=== PATIENT | female | born 1940 | race Caucasian/White ===

== ENCOUNTER 2020-02-15 19:12 | Inpatient (IN) ==
[2020-02-15 20:34] LABS: BASO# 0.04 X1000 (0.0-0.2); BASO% 0.4 % (0.0-0.8); EOS# 0.35 X1000 (0.0-0.7); EOS% 3.8 % (0.0-10.0); HEMATOCRIT 34.8 % (37.0-47.0); HEMOGLOBIN 11.1 g/dL (12.0-16.0); IMM GRAN# 0.01 X1000 (0.0-0.04); IMM GRAN% 0.1 % (0.0-0.5); LYMPH# 1.93 X1000 (1.2-3.4); LYMPH% 20.7 % (20.5-51.1); MCH 30.3 PG (27-31); MCHC 31.9 g/dL (33-37); MCV 95.1 FL (81-99); MONO# 0.82 X1000 (0.11-0.59); MONO% 8.8 % (1.7-9.3); MPV 11.2 FL (7.4-10.4); NEUT# 6.16 X1000 (1.4-6.5); NEUT% 66.2 % (42.2-75.2); PLT 268 X1000 (130-400); RBC 3.66 XMIL (4.2-5.4); RDW 14.4 % (11.5-14.5); WBC 9.31 X1000 (4.8-10.8)
--- NOTE | 2020-02-15 20:46 | Diag Imaging Result Doc PS360 ---
CT HEAD W/O CONTRAST - 02/15/2020 INDICATION: WEAKNESS COMPARISON: 10/08/2019 FINDINGS: There are some new, chronic lacunar infarcts in the right frontal lobe white matter. Otherwise stable mild scattered cerebral white matter chronic microvascular ischemia. No intracranial mass or hemorrhage. The skull is intact. The sinuses, mastoids, and middle ears are clear. IMPRESSION: Increasing chronic stroke burden. No acute process. This exam was performed using automated exposure control, adjustment of mA or kV according to patient size, and/or use of iterative reconstruction technique Electronically signed by Kam Patel 02/15/2020 8:43 PM
[2020-02-15 20:50] LABS: AGAP 10; ALKALINE PHOSPHATASE 75 U/L (32-104); BUN 18 mg/dL (8-22); CALCIUM 9.4 mg/dL (8.8-10.2); CHLORIDE 104 mmol/L (98-107); COSMO 287; CREATININE 0.6 mg/dL (0.5-0.9); ESTIMATED GFR > 60; GLUCOSE 132 mg/dL (70-104); GOT 13 U/L (10-30); GPT 9 U/L (10-36); POTASSIUM 3.7 mmol/L (3.5-5.1); SODIUM 142 mmol/L (136-145); TCO2 29 mmol/L (25-35); TOTAL PROTEIN 7.2 g/dL (6.3-8.3)
[2020-02-15 20:51] LABS: INR 0.86; PROTIME 12.1 Seconds (11.0-16.0); PTT 30.9 Seconds (22.3-41.8)
[2020-02-15 21:00] LABS: URINE SOURCE CLEAN CATCH
[2020-02-15 21:03] LABS: BILIRUBIN URINE NEGATIVE (NEGATIVE); BLOOD URINE NEGATIVE (NEGATIVE); COLOR YELLOW; GLUCOSE URINE NEGATIVE (NEGATIVE); KETONE URINE NEGATIVE (NEGATIVE); LEUKOCYTES URINE NEGATIVE (NEGATIVE); NITRITE URINE NEGATIVE (NEGATIVE); PROTEIN URINE NEGATIVE (NEGATIVE); SP GRAVITY URINE 1.013; TURBIDITY URINE CLEAR (CLEAR); UROBILINOGEN URINE NORMAL (NORMAL)
[2020-02-15 21:04] LABS: UR EPITHELIAL CELLS <10 /HPF (<10); URINE BACTERIA NEGATIVE /HPF; URINE RBC <10 /HPF (<10); URINE WBC <10 /HPF (<10)
[2020-02-15] MEDS ORDERED: ASPIRIN PO ONE (21:20)
--- NOTE | 2020-02-15 22:53 | PROVIDER DOCUMENTATION ---
This chart was entered by Clair Barnard Scribe, acting as scribe for Serene Price CRNP. HPI-General Adult - General Chief Complaint: Weakness Stated Complaint: FALL Time Seen by Provider: 02/15/20 19:17 Source: patient Allergies/Adverse Reactions: Patient Allergies Allergy/AdvReac Type Severity Reaction Status Date / Time codeine AdvReac Unknown Verified 10/05/18 23:04 Home Medications: Home Medication List Medication Instructions Recorded Confirmed Last Taken Type Metformin [Glucophage] 500 mg PO DAILY 10/05/18 10/08/19 Unknown History Omeprazole [Prilosec] 10 mg PO DAILY 10/05/18 10/08/19 Unknown History Amlodipine Besylate [Norvasc] 2.5 mg PO DAILY #30 tab 10/08/19 Unknown Rx Aspirin 81 mg PO DAILY #30 chewtab 10/08/19 Unknown Rx - History of Present Illness -Gen Adult Nature of Presenting Problems: pt is a 80 yr old female presenting with complaint of left side weakness, onset 0900 this AM, pt admits difficulty getting up, denies fall but reports she slid off the couch onto the floor and was unable to get self up. pt denies any numbness, no slurred speech/facial droop. Review of Systems - Adult - REVIEW OF SYSTEMS - ADULT Constitutional: reports: fatique. denies: chills, fever Eyes: reports: no symptoms reported Ears, Nose, Mouth & Throat: reports: no symptoms reported Cardiovascular: denies: chest pain, palpitations, syncope Respiratory: denies: cough, shortness of breath Gastrointestinal: denies: abdominal pain, diarrhea, nausea, vomiting Genitourinary: reports: no symptoms reported Musculoskeletal: reports: muscle weakness (left sided) Integumentary: reports: no symptoms reported Neurological: denies: dizziness/vertigo, numbness, paresthesia, slurred speech, syncope Psychiatric: reports: no symptoms reported Endocrine: reports: no symptoms reported Hematologic/Lymphatic: reports: no symptoms reported Allergic/Immunologic: reports: no symptoms reported All Other Systems: Reviewed and Negative Past History - Adult - PAST MEDICAL HISTORY-ADULT Review of Records: reports: Old Records Reviewed, Nursing Assessment Review, Medications Reviewed, Social history reviewed & non-contributory. Major Childhood Illnesses: reports: denies history Cardiovascular: reports: denies history Respiratory: reports: denies history Gastrointestinal: reports: denies history Obstetrical/Gynecological: reports: denies history Genitourinary: reports: denies history Musculoskeletal: reports: denies history Neurological: reports: denies history Endocrine/Immune: reports: denies history Other Conditions: reports: denies history - IMMUNIZATION STATUS Childhood Immunizations: See Nurse Assessment Flu Vaccine: See Nurse Assessment - FAMILY HISTORY Family History: reviewed, not pertinent - SOCIAL HISTORY Smoking: denies Substance Use: denies Living Situation: family Physical Exam-General - PHYSICAL EXAM-ADULT Initial Vital Signs Reviewed: Yes - CONSTITUTIONAL General Appearance: alert, no apparent distress, other (frail) - EYES Eyes: PERRL/EOMI - HEAD, EARS, NOSE, MOUTH & THROAT HENMT: normocephalic/atraumatic - NECK Neck: non-tender, full range of motion, supple, normal inspection - RESPIRATORY Respiratory: chest non-tender, lungs clear, normal breath sounds, no respiratory distress, no accessory muscle use - CARDIOVASCULAR Cardiovascular: normal peripheral pulses, regular rate, rhythm, no edema - GASTROINTESTINAL (ABDOMEN) Abdominal Exam: normal bowel sounds, non tender, soft - LYMPHATIC Lymphatic: no adenopathy - MUSCULOSKELETAL Back Exam: normal inspection Extremity: normal range of motion, non-tender, normal gait Peripheral Pulses: radial (R): 2+, radial (L): 2+, dorsalis-pedis (R): 2+, dorsalis-pedis (L): 2+ - SKIN Integumentary: normal color, normal turgor, warm/dry - NEUROLOGIC Neurologic: motor weakness (left side weakness). negative: facial droop, sensory deficit - PSYCHIATRIC Psych/Mental Status: normal mood/affect Progress - PLAN OF CARE/RESULTS Progress/Plan/Lab Results: Vital Signs - 8 hr 02/15/20 19:28 Temperature 97.8 F Pulse Rate 78 Respiratory Rate 18 Blood Pressure 162/86 O2 Sat by Pulse Oximetry 96 Orders Category Date Time Status Saline Loc NOW Care 02/15/20 19:[address] HEAD W/O CONTRAST [CT] Stat Exams 02/15/20 19:32 Ordered CBC WITH ELECTRONIC DIFF [HEME] Stat Lab 02/15/20 19:31 Uncollected COMPREHENSIVE METABOLIC PANEL [CHEM] Stat Lab 02/15/20 19:32 Uncollected PROTIME WITH INR [COAG] Stat Lab 02/15/20 19:32 Uncollected PTT [COAG] Stat Lab 02/15/20 19:32 Uncollected UA NIMS W/REFLEX CULT [URINALYSIS] Stat Lab 02/15/20 19:33 Uncollected EKG [EKG] Stat Ther 02/15/20 19:32 Ordered reviewed need for admission with patient and family, in agreement with transfer to [facility] for further care and nuero consult Result Diagrams: 02/15/20 20:15 02/15/20 20:15 - REASSESSMENT Reassessment #1 Time Reassessed: 19:40 Status: worsening (pt self ambualated into triage initially, pt now unable to lift left leg) Reassessment #2 Time Reassessed: 21:21 Status: other (left weakness has resolved on LE) - EKG 1 Time of EKG reading by physician:: 20:01 EKG Read and Signed by:: Hilario Castano EKG Interpretation (*Must complete 3 of following elements*): Normal Rate: 74 Rhythm: NSR Upperco: normal QRS: normal KS Interval: normal ST Wave: normal - CT/MRI 1 CT Study: Head Impression: See EMR Report (CT HEAD W/O CONTRAST - 02/15/2020 INDICATION: WEAKNESS COMPARISON: 10/08/2019 FINDINGS: There are some new, chronic lacunar infarcts in the right frontal lobe white matter. Otherwise stable mild scattered cerebral white matter chronic microvascular ischemia. No intracranial mass or hemorrhage. The skull is intact. The sinuses, mastoids, and middle ears are clear. IMPRESSION: Increasing chronic stroke burden. No acute process. This exam was performed using automated exposure control, adjustment of mA or kV according to patient size, and/or use of iterative reconstruction technique Electronically signed by Kam Patel 02/15/2020 8:43 PM 02/15/202042 Interpreting Physician: Kam Patel MD Dictated Date/Time: 02/15/202035 cc: Serene Price; RADHA ANGELA) - CONSULTS/PCP/HOSPITALIST Notification #1 *Consult/PCP/Hospitalist*: Dr. Pennington Time Discussed: 22:52 Consult Disposition: Admit (Dr. Castano disscussed with Dr. Rose) Departure - Departure Date of Disposition Decision: 02/15/20 Time of Disposition Decision: 21:21 DIAGNOSIS: CVA (cerebral vascular accident) Disposition: ADMITTED INPATIENT 09 Certified Medical Emergency: Emergent Condition: Stable Referrals and Follow-Ups: RADHA ANGELA [Primary Care Provider] - - Critical Care Note This patient required my direct & personal management of CC.: No Attestation - Physician/ SMITHA Attestation Patient care was provided by Advanced Practice Provider:: Yes Advanced Practice Provider:: Serene Price Advanced Practice Provider documentation review:: The Mid-level provider documentation, treatment plan and medical decision making was reviewed by the physician who agrees with all treatment and medical decision making by the MLP. The physician spent face to face time with patient:: No Advanced Practice Provider documentation review:: Supervising physician onsite and consulted in the evaluation and care of this patient. The physician did not have a face to face encounter with the patient. - NIH Stroke Scale NIH Type: Initial Evaluation Level of Consciousness: 0-Alert LOC Questions (ask month and age): 0-Answers Both Correctly LOC Commands (ask to open & close eyes;make a fist, let go): 0-Obeys Both Correctly Best Gaze (horizontal eye movement): 0-Normal Visual (use finger movement, counting or visual threat): 0-No Visual Loss (blind in R eye) Facial Palsy (show teeth or raise eyebrows & close eyes tght: 0-Symmetrical Movement Motor Function-left arm: 1-Drift Motor Function-right arm: 0-Normal Motor Function-left le-Some Effort Against Yeso Motor Function-right le-Normal Limb Ataxia(gmvwfn-tjrm-hzhdnz, or heel to ramsey): 1-Present in one limb Sensory(pin prick to face,arms,trunk,legs-compare side/side): 0-No Ataxia Best Language(name item/read sentence.Ex-Down to Earth): 0-No Aphasia Dysarthria(Pt read words or say words Ex.Mama,Tip-Top,Thanks: 0-Normal Articulation Extinction and Inattention: 0-Normal NIH Total Score: 5 Stroke tPA Guidelines - Inclusion Criteria for IV tPA 18 years old or older: Yes Ischemic stroke with measurable deficit: Yes Onset <3 hours ago *OR* 3-4.5 hours ago: No This chart was documented by the indicated scribe, (Clair Barnard, Chelsey) and accurately reflects the services I performed and decisions made by me, Lory Price CRNP, as attested by the provider's signature.
[2020-02-16] MEDS ORDERED: ZOFRAN IV PRN (01:04)
[2020-02-16] MEDS ORDERED: LOVENOX SUBQ SCH (01:15)
[2020-02-16] MEDS: NS 1,000 ML IV SCH ×2 (02:27→15:09)
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
--- NOTE | 2020-02-16 05:23 | EKG Report ---
Test Performed on : 02/15/2020 8:01:20 PM Test Reason : WEAKNESS Blood Pressure : / mmHG Vent. Rate : 074 BPM Atrial Rate : 074 BPM P-R Int : 132 ms QRS Dur : 084 ms QT Int : 384 ms P-R-T Axes : 048 003 027 degrees QTc Int : 426 ms Normal sinus rhythm. Normal ECG When compared with ECG of 08-OCT-2019 12:41, No significant change was found Unconfirmed Result
[2020-02-16] MEDS: PROTONIX PO SCH (06:30)
[2020-02-16] MEDS: HUMALOG SUBQ SCH ×4 (06:30→20:58)
--- NOTE | 2020-02-16 07:07 | Diag Imaging Result Doc PS360 ---
EXAM: CHEST-1 VIEW 02/16/2020 HISTORY: L sided wheeze TECHNIQUE: AP portable at 0254 COMMENT: There is some questionable atelectasis or pneumonia in the left lower lobe. Otherwise are has been no significant change in the appearance the chest considering differences in technique since 10/08/2019. IMPRESSION: Questionable left lower lobe atelectasis. Electronically signed by Levar Guajardo 02/16/2020 7:05 AM
[2020-02-16 08:15] LABS: RETIC% 3.12 % (0.8-2.1); RETIC-HE 35.6 PG (28.2-36.6)
[2020-02-16 08:18] LABS: HEMOGLOBIN A1C 7.2 % (4.8-6.0)
[2020-02-16 08:27] LABS: CHOLESTEROL 126 mg/dL (0-200); HDL 48 mg/dL (45-65); LDL 61 mg/dL; TRIGLYCERIDES 87 mg/dL (35-135); VLDL 17 mg/dL
[2020-02-16] MEDS ORDERED: PLAVIX PO SCH (09:00)
[2020-02-16] MEDS: ASPIRIN PO SCH (10:08)
[2020-02-16] MEDS: LIPITOR PO SCH (10:08)
--- NOTE | 2020-02-16 11:32 | Diag Imaging Result Doc PS360 ---
EXAM: MRI BRAIN W/O CONTRAST INDICATION: CVA COMPARISON: CT head dated 02/15/2020. No prior MRI brain is available for comparison. FINDINGS: There is patchy subcortical encephalomalacia related to old infarcts in the right frontal lobe. However, adjacent to these older infarcts in the right frontal lobe near the cranial vault, there are a couple of tiny foci of cortical and subcortical restricted diffusion indicating acute infarcts (see images 22 and 23 of series 7). There is minimal encephalomalacia at the medial right parietal lobe posteriorly near the cranial vault. There is suggestion of mild white matter microangiopathy. There is a tiny chronic lacunar infarct involving the jordan to the right of midline. There is no discrete intracranial mass, mass effect, or intracranial hemorrhage. The surrounding soft tissues and bony structures are essentially unremarkable. IMPRESSION: 1.Patchy subcortical encephalomalacia involving the right frontal lobe indicating old infarcts but there are a couple of tiny foci of cortical and subcortical restricted diffusion adjacent to this in the right frontal lobe indicating acute infarcts. Please see above discussion. 2.Focal right parietal lobe encephalomalacia, small chronic lacunar infarct involving the jordan, and suggestion of mild white matter microangiopathy. Electronically signed by Desmond Tellez 02/16/2020 11:30 AM
--- NOTE | 2020-02-16 12:49 | NEUROLOGY CONSULTATION ---
DATE: 02/16/2020 LOCATION: Room 326A. HISTORY OF PRESENT ILLNESS: Ms. Estevez is 80 years old and she has had some recent falls. She reports no significant memory problems, and history is taken from the patient. She reports that she fell in the bathroom and landed in the tub, and could not get herself up without assistance about 2 months ago. She believes that she tripped and fell on two other occasions, both within the last month, once getting herself up without assistance, and once having some help to get up. Yesterday, she had trouble getting up from bed. She eventually got herself to the couch, and then had trouble getting off the couch, eventually sliding onto the floor, unable to get up. She reports she felt weak all over. She presented to the hospital, where she was noted to have left-sided weakness. CT scan shows right frontal white matter lucency, and brain MRI today without contrast shows evidence of old right frontal encephalomalacia and some small areas of restricted diffusion adjacent to that. She has been afebrile. Systolic blood pressures have ranged 140s to 180s. HOME MEDICATIONS: Include aspirin, amlodipine, metformin, and she reports taking these correctly. PAST MEDICAL HISTORY: Remarkable for hypertension, dyslipidemia, diabetes mellitus type 2. PHYSICAL EXAMINATION: Ms. Estevez is awake, alert, attentive. Her speech is not dysarthric. Language function is intact on brief bedside testing. She is oriented. I did not test her cognitive function thoroughly. Head and neck are unremarkable. Visual peña are full to confrontational finger counting with the left eye. She has no vision in the right eye that I can demonstrate. Extraocular movements are full. Facial motility is good bilaterally. Tongue is midline. She reports equal pinprick appreciation across the face. Shoulder shrug is diminished on the left. Strength is normal in the right limbs. Strength is diminished on the left, grading 3/5 at the deltoid, 4/5 at the wrist extensor and sustainable agriculture specialist, 3/5 in the iliopsoas, and 4/5 in the anterior tibialis. Tone is increased in the left arm. She did rapid alternating movements better with the right hand than the left. She did better with right [id number]-[id number] than with the left. She reports symmetric pinprick and light touch appreciation over the limbs. Reflexes are trace at the ankles symmetrically, 1+ at the wrists symmetrically. Plantar response is silent bilaterally. I did not test her gait. IMPRESSION: Left hemiparesis, relatively pure motor deficit. The imaging findings suggest previous infarction, possibly correlating with when she began to fall a few months ago, and some more acute infarction, which may correlate with her sudden inability to get up yesterday. She has risk factors for cerebrovascular ischemic problems including age, previous infarction, hypertension, dyslipidemia, diabetes mellitus. 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 This would suggest nondominant right hemisphere infarction, but she reports always being left handed. I agree with workup as ordered, including CT angiogram. I would continue maintaining blood pressures in the current range, continue statin and aspirin. Thank you for asking Neurology to see Ms. Estevez. cc: MD SANJUANA Carl III
--- NOTE | 2020-02-16 13:10 | ECHO REPORT ---
ORDER DATE: 02/16/2020 MEASUREMENTS: Septal thickness 1.4, left ventricular internal diameter in diastole 3.4, posterior wall thickness 1.0, left ventricular internal diameter in systole 2.3, aortic root 2.6, left atrium 3.8. SUMMARY: 1. Technically difficult study due to limited acoustic window quality. 2. Aortic valve is trileaflet and opens normally on 2-dimensional images. The peak gradient across the aortic valve is less than 10 mmHg. Mitral and tricuspid valves are without evidence of structural abnormality, while pulmonic valve is not well demonstrated. There is very mild mitral regurgitation, mild tricuspid regurgitation, and trace pulmonic insufficiency. The estimated systolic PA pressure by Doppler is 25 to 30 mmHg. The aortic root is normal in size. 3. Normal left ventricular chamber size with mild concentric left ventricular hypertrophy suggested. The estimated left ventricular ejection fraction appears to be at least 60%. No regional wall motion abnormality can be appreciated. Doppler suggests grade 1 left ventricular diastolic dysfunction. The left atrium is upper normal in size. The right atrium and right ventricle are normal in size with normal right ventricular systolic function. 4. No pericardial effusion. 5. Appearance of the inferior vena cava suggests normal central venous pressure. CONCLUSIONS: 1. Technically difficult study. 2. Very mild mitral regurgitation. 3. Mild tricuspid regurgitation with estimated systolic PA pressure of 25 to 30 mmHg. 4. Mild left ventricular hypertrophy with estimated left ventricular ejection fraction of at least 60%. 5. Grade 1 left ventricular diastolic dysfunction suggested. cc: MD Mary Jo Miranda MD
--- NOTE | 2020-02-16 19:06 | PROGRESS NOTE ---
DATE: 02/16/2020 OBJECTIVE: Vital signs: Heart rate 64, respiratory 18, temperature 97.4 degrees. Cardiovascular: Regular rate and rhythm. Pulmonary: Bilateral breath sounds clear to auscultation. GI: Was soft, nontender, nondistended. Bowel sounds are positive. LABORATORY DATA: I do not have any new data, but her MRI did show stroke, restricted diffusion in her right cortex, very small acute infarcts all within, it looked like to me, more of a right middle cerebral artery distribution. We will get a CTA and follow. cc: Florian Rodriguez MD
[2020-02-16] MEDS: TYLENOL PO PRN (21:52)
--- NOTE | 2020-02-16 22:10 | Diag Imaging Result Doc PS360 ---
EXAM: CT ANGIOGRAM HEAD INDICATION: cva TECHNIQUE: This exam was performed using automated exposure control, adjustment of mA or kV according to patient size, and/or use of iterative reconstruction technique. Thin section axial images and 3-D MIPS were obtained. COMPARISON: None. FINDINGS: There is a tiny outpouching seen at the distal tip of the left ICA at its anastomosis with the left MCA consistent with a tiny aneurysm. It measures approximately 2 mm axially. No other cerebral aneurysms are appreciated. There is trace atherosclerotic disease involving the carotid siphons. No flow-limiting stenosis is appreciated. No flow-limiting stenosis is identified involving the remaining arteries comprising the agdaagux of Hernandez including the anterior cerebral arteries, middle cerebral arteries, and posterior cerebral arteries. The distal vertebral arteries and the basilar artery are patent and unremarkable, otherwise. 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 2.No flow-limiting stenosis identified involving the cerebral arteries. Electronically signed by Desmond Tellez 02/16/2020 10:08 PM
[2020-02-17] MEDS: TYLENOL PO PRN ×2 (05:48→20:29)
[2020-02-17] MEDS: HUMALOG SUBQ SCH ×4 (06:08→20:29)
[2020-02-17] MEDS: PROTONIX PO SCH (06:08)
[2020-02-17 08:06] LABS: TSH 1.79 uIUmL (0.27-4.20)
[2020-02-17] MEDS: ASPIRIN PO SCH (10:16)
[2020-02-17] MEDS: LIPITOR PO SCH (10:16)
[2020-02-17 11:38] LABS: EOS# 0.17 X1000 (0.0-0.7); EOS% 1.7 % (0.0-10.0); HEMATOCRIT 34.8 % (37.0-47.0); HEMOGLOBIN 11.6 g/dL (12.0-16.0); LYMPH# 1.71 X1000 (1.2-3.4); LYMPH% 17.5 % (20.5-51.1); MCH 31.3 PG (27-31); MCHC 33.3 g/dL (33-37); MCV 93.8 FL (81-99); MONO# 0.63 X1000 (0.11-0.59); MONO% 6.4 % (1.7-9.3); NEUT# 7.17 X1000 (1.4-6.5); NEUT% 73.4 % (42.2-75.2); PLT 250 X1000 (130-400); RBC 3.71 XMIL (4.2-5.4); RDW 14.6 % (11.5-14.5); WBC 9.78 X1000 (4.8-10.8)
[2020-02-17 12:00] LABS: AGAP 11; ALBUMIN 3.3 g/dL (3.5-5.0); ALKALINE PHOSPHATASE 77 U/L (32-104); BUN 11 mg/dL (8-22); CALCIUM 8.8 mg/dL (8.8-10.2); CHLORIDE 103 mmol/L (98-107); COSMO 281; CREATININE 0.8 mg/dL (0.5-0.9); ESTIMATED GFR > 60; GLUCOSE 163 mg/dL (70-104); GOT 14 U/L (10-30); GPT 9 U/L (10-36); POTASSIUM 3.8 mmol/L (3.5-5.1); SODIUM 139 mmol/L (136-145); TCO2 25 mmol/L (25-35); TOTAL BILIRUBIN 0.81 mg/dL (0.20-1.00); TOTAL PROTEIN 6.6 g/dL (6.3-8.3)
--- NOTE | 2020-02-17 17:05 | PROGRESS NOTE ---
DATE: 02/17/2020 SUBJECTIVE: The patient has no major complaints. OBJECTIVE: vital signs: Blood pressure is 109/51, heart rate 70, respiratory rate 18, temperature 98 degrees. Cardiovascular: Regular rate and rhythm. Pulmonary: Bilateral breath sounds. Clear to auscultation. Gastrointestinal: Soft, nontender, nondistended. Bowel sounds are positive. LABORATORY DATA: Really no major issues. Sugars have kind of been up and down. Probably have some room to work there on those. PROBLEM LIST: 1. 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 We will continue medical care. She is currently on aspirin and Lipitor. We are allowing permissive hypertension. 2. Diabetes. Again, that is not very well controlled. We will see how that looks. She is on glimepiride. We will resume that. Her lisinopril is being held because of permissive hypertension. She had been on aspirin previously, so I think I may add Plavix and we will see how she does at the discretion of Neurology. 3. Type 2 diabetes. We will continue to monitor her blood sugars. We have resumed her Amaryl and we will follow closely. DISPOSITION: I think rehab would be the best for her, but she seems to refuse to do that. She says she is going to go home with her family. There was no family there for me to make that evaluation, but we will continue to follow. I guess they are going to look at home health, but I do not think the patient can move. There is a PT note. She could not do ADLs and they recommended SNF and PT. Well, they recommended home health. I do not know. She seemed like she was going to be difficult, but we will see how she does. DISPOSITION: Pending her clinical status, but she is going to go home I guess at the discretion of how she does with her physical therapy. cc: Florian Rodriguez MD
[2020-02-17] MEDS: AMARYL PO SCH (17:08)
[2020-02-18] MEDS ORDERED: LOVENOX SUBQ SCH (06:00)
[2020-02-18] MEDS: PROTONIX PO SCH (06:51)
[2020-02-18] MEDS: HUMALOG SUBQ SCH ×2 (06:52→13:31)
[2020-02-18] MEDS: TYLENOL PO PRN (07:01)
[2020-02-18 07:13] LABS: BASO# 0.03 X1000 (0.0-0.2); BASO% 0.3 % (0.0-0.8); EOS# 0.32 X1000 (0.0-0.7); EOS% 3.7 % (0.0-10.0); HEMATOCRIT 36.3 % (37.0-47.0); HEMOGLOBIN 11.8 g/dL (12.0-16.0); IMM GRAN# 0.02 X1000 (0.0-0.04); IMM GRAN% 0.2 % (0.0-0.5); LYMPH# 1.85 X1000 (1.2-3.4); LYMPH% 21.2 % (20.5-51.1); MCH 30.5 PG (27-31); MCHC 32.5 g/dL (33-37); MCV 93.8 FL (81-99); MONO# 0.69 X1000 (0.11-0.59); MONO% 7.9 % (1.7-9.3); MPV 11.2 FL (7.4-10.4); NEUT# 5.81 X1000 (1.4-6.5); NEUT% 66.7 % (42.2-75.2); PLT 275 X1000 (130-400); RBC 3.87 XMIL (4.2-5.4); RDW 14.6 % (11.5-14.5); WBC 8.72 X1000 (4.8-10.8)
[2020-02-18 07:40] LABS: AGAP 11; BUN 15 mg/dL (8-22); CALCIUM 9.3 mg/dL (8.8-10.2); CHLORIDE 102 mmol/L (98-107); COSMO 286; CREATININE 0.8 mg/dL (0.5-0.9); ESTIMATED GFR > 60; GLUCOSE 204 mg/dL (70-104); POTASSIUM 3.7 mmol/L (3.5-5.1); SODIUM 140 mmol/L (136-145); TCO2 27 mmol/L (25-35)
--- NOTE | 2020-02-18 08:26 | Carotid Study ---
DATE: 02/16/2020 REFERRING PHYSICIAN: Aditi. READING PHYSICIAN: Latia. QUALITY ASSURANCE ASSESSOR: Raheem. INDICATIONS: Stroke. FINDINGS: There is no significant plaque or stenoses in either carotid system. There is antegrade vertebral flow bilaterally. Percent stenosis 0 to 39 percent bilaterally. INTERPRETATION: Unremarkable carotid imaging study. cc: MD Mary Jo Arambula MD
[2020-02-18] MEDS ORDERED: COSOPT OPHTH SOLN RIGHT EYE SCH (09:00)
[2020-02-18] MEDS ORDERED: DETROL LA PO SCH (09:00)
[2020-02-18] MEDS: ASPIRIN PO SCH (09:26)
[2020-02-18] MEDS: LIPITOR PO SCH (09:26)
[2020-02-18] MEDS: AMARYL PO SCH (09:27)
[2020-02-18 12:03] VITALS: BP 146/63
--- NOTE | 2020-02-18 13:09 | NEUROLOGY PROGRESS NOTE ---
DATE: 02/18/2020 SUBJECTIVE: Ms. Estevez is awake, alert, bright, attentive. I observed her feeding herself from her lunch tray. She was able to use her right hand without much difficulty. She had difficulty performing tasks which required assistance with the left hand. She could not open a packet of sweetener. OBJECTIVE: She has good power in the right limbs. Left arm is a little bit stronger than a few days ago. She has trouble with left [id number] as before. Visual peña are full. She reports diminished pinprick appreciation very inconsistently over the hands, sometimes reporting better sensation over the left hand than the right. Proprioception is good consistently at the second finger PIP joint bilaterally. She was able to chew and swallow without difficulty. Speech is not significantly dysarthric now. IMPRESSION: Left hemiparesis, stable course with slight improvement noted. I encouraged her to consider the recommendations for rehab and to be aggressive with that. I do not have any new thoughts or new suggestions from a Neurology standpoint. Thanks for asking us to see Ms. Estevez. cc: Betty Morel III, MD
--- NOTE | 2020-02-18 13:35 | DISCHARGE SUMMARY ---
ADMISSION DATE: 02/15/2020 DISCHARGE DATE: 02/18/2020 PRIMARY CARE PROVIDER: ALPESH Montenegro PERTINENT PROCEDURES: Head CT, increased chronic stroke burden. No acute process. Carotid Dopplers unremarkable. Echocardiogram EF of 60% with grade 1 ventricular diastolic dysfunction. Brain MRI, patches of cortical encephalomalacia involving the right frontal lobe indicating old infarcts but there were a couple of tiny foci of cortical and subcortical restricted diffusion adjacent to his right frontal lobe indicating acute infarcts, focal right parietal lobe encephalomalacia, small chronic motor infarct involving the jordan and suggestion of mild white matter micro angiopathy. 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 No flow- limiting stenosis identified involving the cerebral arteries. CONSULTATIONS: Dr. Betty Morel with Neurology. DISCHARGE DIAGNOSES: 1. 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 She has been followed by Neurology, failed outpatient aspirin changed to Plavix, high-dose statin. She will be discharged home with [facility]. 2. Diabetes, not very well controlled. Continue diabetic diet and resumed her on home medications. 3. Weakness, patient refuses rehab. Will be discharged with [facility]. HOSPITAL COURSE: Briefly, Ms. Estevez is an 80-year-old female with a past medical history of heart disease, diabetes, and stroke presented to [facility] ED after she tried to stand up and her leg gave out and slid off her chair. She was unable to get up because her foot on the left side was very weak. She called her daughter for assistance who brought her to the ED to be evaluated and was transferred to [facility] for neurological services. Workup with a head CT, brain MRI, echo, carotid Dopplers and head CTA were performed. It does show some chronic infarcts, some old infarcts as well as some new infarcts. She failed outpatient aspirin. She was changed to Plavix as well as placed on a higher dose statin she was working with physical therapy. It was felt that she would need to be discharged to rehab. However, patient refuses and will be discharged to [facility]. VITAL SIGNS: At time of discharge, temperature is 97.8 degrees, heart rate 63, respirations 18, blood pressure 146/63, O2 is 99% on room air. DISCHARGE DIET: Diabetic. DISCHARGE MEDICATIONS: 1. Cosopt eyedrops 1 drop right eye b.i.d. 2. Detrol LA 2 mg p.o. daily. 3. Glimepiride 4 mg p.o. b.i.d. 4. Lisinopril 5 mg p.o. daily. 5. Lipitor 80 mg p.o. at bedtime. 6. Metformin 500 mg p.o. b.i.d. 7. Plavix 75 mg p.o. daily. FOLLOWUP: Ms. Estevez is being discharged home with home health [facility]. She refused rehab. She will follow up with her primary care provider, Sima Richey in 1 week. She can return to the ED or call 911 for any worsening of symptoms. Dictated by ALPESH Stevenson for Pito Justin MD Patient admitted with left sided weakness, found to have to small acute strokes in addition to multiple older strokes. left upper extremity weakness still present but much improved. left lower extremity still pretty weak but she has been able to get around some with a walker and has been able to maneuver herself in a bed or chair without too much difficulty. eating well. no respiratory issues. discussed rehab but patient remains adamant in her desire to go home. home health set up. given what appears to be failure of aspirin, she was changed to plavix and atorvastatin dose was maximized. stopped PPI to minimize potential interaction with the plavix. discharged home to follow up with her PCP. Briefly discussed neurosurgical folllow up for her tiny(2mm) cerebral aneurysm but given the small size and her age, I doubt they will do much it aside from possibly repeating imaging in a few months. we did recommend that she see them at least once to let them look at it. SANJUANA
== END 2020-02-18 14:00 | disposition home health service (06) | DRG 65 ==
LOC: P.ED 19:12 → SUATTDRO 23:12 → 3N 23:12
PROVIDERS: ATTEND Internal Medicine